=== PATIENT | male | born 2000 | race Two or more races ===

== ENCOUNTER 2022-04-18 01:27 | Emergency (ER) | payer MEDICAID ==
[~2022-04-18] VITALS: Ht 180.3 cm; Wt 70.2 kg
[2022-04-18 06:25] VITALS: BP 126/76
== END 2022-04-18 06:49 | disposition left against medical advice (07) ==
LOC: ER 01:27
DX: H57.13 Ocular pain, bilateral (principal); Z53.21 Procedure and treatment not carried out due to patient leaving prior to being seen by health care provider